=== PATIENT | male | born 1950 | race Caucasian/White ===

== ENCOUNTER 2021-10-20 15:06 | Emergency (ER) | payer MEDICARE, SELFPAY ==
--- NOTE | ~2021-10-20 | XR_ITS ---
EXAMINATION: XR chest 2V DATE: 10/20/2021 15:45 INDICATION: Chest pain. TECHNIQUE: Frontal and lateral views of the chest were obtained. COMPARISON: None. FINDINGS: The chest demonstrates clear lungs without pneumonia, pleural effusion, or pneumothorax. Th e heart size is normal. IMPRESSION: 1. No acute cardiopulmonary disease. Reviewed, dictated and finalized at location A. EMS PROGRAMMER ANALYST
--- NOTE | 2021-10-20 15:10 | ECG_ITS ---
Measurements Intervals [place] Rate: 93 P: 8 NM: 166 QRS: -42 QRSD: 96 T: 10 QT: 343 QTc: 429 Interpretive Statements SINUS RHYTHM LEFT AXIS DEVIATION INCOMPLETE RIGHT BUNDLE BRANCH BLOCK DELAYED PRECORDIAL R/S TRANSITION BASELINE WANDER- II, III, AVF BORDERLINE ECG Electronically Signed On 10-21-2021 14:07:39 SHOWER MAID by Vega Ron D.O.
[2021-10-20 15:18] VITALS: BP 149/100; PULSE 96; RESP 18; TEMP 36.8; O2SAT 98
[2021-10-20 15:42] LABS: Basophils Absolute Auto 0.1 K/mm3 (0.0-0.1); Basophils Percent Auto 1.1 % (0.2-1.2); Eosinophils Absolute Auto 0.2 K/mm3 (0-0.3); Eosinophils Percent Auto 3.4 % (0-4.4); Hematocrit 47.6 % (42.0-52.0); Hemoglobin 16.4 g/dL (14.0-18.0); Immature Granulocyte Absolute 0.02 K/mm3 (0.00-0.031); Immature Granulocyte Percent A 0.3 % (0-0.5); Lymphocytes Absolute Auto 1.22 K/mm3 (0.9-3.2); Mean Corpuscular HGB Conc 34.5 g/dl (32-36); Mean Corpuscular Hemoglobin 32.8 pg (26-34); Mean Corpuscular Volume 95.2 fl (80-100); Mean Platelet Volume 9.7 fl (7.4-10.4); Monocytes Absolute Auto 0.5 K/mm3 (0.1-0.6); Monocytes Percent Auto 7.9 % (2.6-8.5); Neutrophils Absolute Auto 4.1 K/mm3 (1.3-6.7); Neutrophils Percent Auto 67.3 % (45.5-73.1); Platelet Count Result 162 k/mm3 (150-375); Red Cell Distribution Width 12.1 % (11.5-14.5); White Blood Count 6.1 K/mm3 (4.5-10.0)
[2021-10-20 15:52] LABS: INR 1.2; Prothrombin Time 14.9 Seconds (11.1-14.7)
[2021-10-20 15:53] LABS: Alanine Aminotransferase 27 U/L (4-50); Albumin Level 4.4 g/dL (3.5-5.1); Alkaline Phosphatase 68 U/L (38-126); Anion Gap 11 mmol/L (8-16); Aspartate Amino Transferase 36 U/L (17-59); Bilirubin,Total 0.9 mg/dL (0.2-1.3); Blood Urea Nitrogen 18 mg/dL (9-20); Calcium 9.2 mg/dL (8.4-10.2); Carbon Dioxide 25 mmol/L (22-30); Chloride 102 mmol/L (98-107); Estimated CRCL calculation 77 ml/min; Estimated Glomerular Filt Rate > 60; Glucose 152 mg/dL (65-110); Lipase 71 U/L (23-300); Potassium 4.2 mmol/L (3.4-5.0); Sodium 138 mmol/L (137-145)
[2021-10-20 16:04] LABS: Troponin I < 0.012 ng/mL (0.000-0.034)
[2021-10-20 18:03] VITALS: BP 164/102; PULSE 99; RESP 18; O2SAT 99
== END 2021-10-20 18:03 | disposition left against medical advice (07) ==
LOC: ANHED 18:06
PROVIDERS: Emergency Provider Emergency Medicine
DX: R07.9 Chest pain, unspecified (principal)
CPT/HCPCS: 36415; 71046; 80053; 83690; 84484; 85025; 85610; 85730; 93005; 99199

== ENCOUNTER 2021-10-30 09:24 | Outpatient (CLI) | payer MEDICARE, SELFPAY ==
[2021-10-30 10:31] LABS: Anion Gap 4 mmol/L (8-16); Blood Urea Nitrogen 25 mg/dL (9-20); Calcium 9.2 mg/dL (8.4-10.2); Carbon Dioxide 30 mmol/L (22-30); Chloride 106 mmol/L (98-107); Estimated Glomerular Filt Rate 60; Glucose 127 mg/dL (65-110); Magnesium 2.1 mg/dL (1.6-2.3); Potassium 4.2 mmol/L (3.4-5.0); Sodium 140 mmol/L (137-145)
== END 2021-10-30 09:25 | disposition home or self-care (01) ==
PROVIDERS: PCP Internal Medicine; Visit Provider Internal Medicine
DX: R00.2 Palpitations (principal)
CPT/HCPCS: 36415; 80048; 83735; 84443

== ENCOUNTER 2021-11-09 08:39 | Outpatient (CLI) | payer MEDICARE, OTHER, SELFPAY ==
--- NOTE | 2021-11-09 | ECHO_ITS ---
Patient Info Name: Bryson Garcia Age: 70 years : 1950 Gender: Male Ht: 72 in Wt: 230 lbs BSA: 2.33 m2 HR: 90 bpm BP: 124 / 85 mmHg Heart Rhythm: Sinus Rhythm Technical Quality: Fair Exam Date: 11/09/2021 9:36 AM Exam Location: [facility] Patient Status: Outpatient Admit Date: 11/09/2021 Staff Ordering Physician: AnabelleLatia MD Radio Interference Investigator: Michelle Desouza RDCS Attending Provider: AnabelleLatia MD Referring Physician: Ronnie BARRAZA; Exam Type: CA echo doppler color flow Study Info Indications I49.9 - IRREGULAR HEARTBEAT Complete two-dimensional, color flow and Doppler transthoracic echocardiogram is performed. Strain analysis performed. Summary 1. Complete two-dimensional, color flow and Doppler transthoracic echocardiogram is performed. 2. Left ventricular chamber dimension is normal. 3. Left ventricular systolic function is normal, estimated at 60-65%. 4. There is no increased left ventricular wall thickness. 5. The left ventricular diastolic function is grade I diastolic dysfunction. 6. Global longitudinal strain is abnormal at -14 %. 7. Strain analysis performed. 8. Left atrial chamber dimension is mildly enlarged. 9. There is mild tricuspid valve regurgitation. Left Ventricle Left ventricular chamber dimension is normal. Left ventricular systolic function is normal, estimated at 60-65%. There is no increased left ventricular wall thickness. The left ventricular diastolic function is grade I diastolic dysfunction. Global longitudinal strain is abnormal at -14 %. The Inferolateral wall segment is not well visualized. Right Ventricle Right ventricular chamber dimension is normal. Right ventricular systolic function is normal. Left Atria Left atrial chamber dimension is mildly enlarged. Right Atria Right atrial chamber dimension is normal. Atrial Septum Intact interatrial septum visualized by color flow imaging. Aortic Valve The aortic valve is trileaflet. There is mild aortic valve sclerosis. There is no aortic valve stenosis. There is trace aortic valve regurgitation. Pulmonic Valve The pulmonic valve is normal. There is no pulmonic valve stenosis. There is trace pulmonic regurgitation. Mitral Valve The mitral valve has normal leaflets. There is no mitral valve stenosis. There is trace mitral valve regurgitation. Tricuspid Valve The tricuspid valve leaflets are normal. There is no significant tricuspid valve stenosis. There is mild tricuspid valve regurgitation. No pulmonary hypertension, estimated pulmonary arterial systolic pressure is 32 mmHg. Pericardium/Pleural The pericardium appears normal. There is no pericardial effusion. Inferior Vena Cava Normal inferior vena cava with >50% collapse upon inspiration consistent with normal right atrial pressure, 5 mmHg. Aorta The aortic root size at the sinus of Valsalva is borderline dilated. Left Ventricular Outflow Tract Name Value Normal LVOT 2D LVOT Diameter 2.0 cm LVOT Doppler LVOT Peak Gradient 3 mmHg LVOT Mean Gradient
--- NOTE | 2021-11-09 | EST_ITS ---
Patient Info Name: Bryson Garcia Age: 70 years : 1950 Gender: Male Ht: 72 in Wt: 230 lbs BSA: 2.33 m2 HR: 77 bpm BP: 143 / 91 mmHg Heart Rhythm: Sinus Rhythm Exam Date: 11/09/2021 9:06 AM Exam Location: [facility] Stress Patient Status: Outpatient Admit Date: 11/09/2021 Staff Ordering Physician: RonnieLatia MD Attending Provider: RonnieLatia MD Exercise Technologist: Jacki Vega CT Exercise Physician: Moses Gross MD Exam Type: CA stress test treadmill Study Info Indications R00.2 - Palpitations An exercise stress test was performed. Summary 1. Normal ST segment response to stress. 2. Below average exercise capacity for age. Protocol: Audie Stress ECG Details Stage: REST Duration (min): 1 min : 5 sec Speed (mph): 0.0 Grade (%): 0 HR (bpm): 78 SBP (mmHg): 141 DBP (mmHg): 93 METS: --- Stage: REST Duration (min): 7 min : 15 sec Speed (mph): 0.0 Grade (%): 0 HR (bpm): 81 SBP (mmHg): 141 DBP (mmHg): 93 METS: --- Stage: STAGE 1 Duration (min): 1 min : 0 sec Speed (mph): 1.7 Grade (%): 10 HR (bpm): 101 SBP (mmHg): 141 DBP (mmHg): 93 METS: --- Stage: STAGE 1 Duration (min): 2 min : 0 sec Speed (mph): 1.7 Grade (%): 10 HR (bpm): 115 SBP (mmHg): 141 DBP (mmHg): 93 METS: --- Stage: STAGE 1 Duration (min): 3 min : 0 sec Speed (mph): 1.7 Grade (%): 10 HR (bpm): 125 SBP (mmHg): 161 DBP (mmHg): 88 METS: --- Stage: STAGE 2 Duration (min): 1 min : 0 sec Speed (mph): 2.5 Grade (%): 12 HR (bpm): 132 SBP (mmHg): 161 DBP (mmHg): 88 METS: --- Stage: STAGE 2 Duration (min): 2 min : 0 sec Speed (mph): 2.5 Grade (%): 12 HR (bpm): 139 SBP (mmHg): 153 DBP (mmHg): 89 METS: --- Stage: STAGE 2 Duration (min): 3 min : 0 sec Speed (mph): 2.5 Grade (%): 12 HR (bpm): 142 SBP (mmHg): 153 DBP (mmHg): 89 METS: --- Stage: RECOVERY Duration (min): 0 min : 59 sec Speed (mph): 0.0 Grade (%): 0 HR (bpm): 130 SBP (mmHg): 185 DBP (mmHg): 95 METS: --- Stage: RECOVERY Duration (min): 1 min : 59 sec Speed (mph): 0.0 Grade (%): 0 HR (bpm): 113 SBP (mmHg): 185 DBP (mmHg): 95 METS: --- Stage: RECOVERY Duration (min): 2 min : 59 sec Speed (mph): 0.0 Grade (%): 0 HR (bpm): 103 SBP (mmHg): 147 DBP (mmHg): 91 METS: --- Stage: RECOVERY Duration (min): 3 min : 3 sec Speed (mph): 0.0 Grade (%): 0 HR (bpm): 102 SBP (mmHg): 147 DBP (mmHg): 91 METS: --- Rest HR: 81 bpm Peak HR: 146 bpm Rest Sys BP: 141 mmHg Peak Sys BP: 185 mmHg Max Pred HR: 151 bpm % Max Pred HR: 97 % Target HR: 128 bpm Max RPP: 27,010 bpm*mmHg Fung Score: -11 Target HR Summary: Hemodynamic response to exercise was normal
--- NOTE | 2021-11-11 15:38 | WPDHOLTEREM ---
Holter/Event Monitor Holter/Event Monitor Date of procedure: 11/09/21 Holter/Event Procedure: 48 Hr Holter Monitor Diagnosis: Palpitations Indications: Palpitations Image/Tracing Quality: Good Finding: Patient was monitored for 47 hours and 59 minutes. Underlying normal sinus rhythm with heart rate variability between 58 and 125 beats per minute with an average heart rate of 82 beats per minute. Low frequency ventricular ectopy totaling 97 PVCs. No sustained or nonsustained runs of ventricular arrhythmia. Also low frequency supraventricular ectopy totaling 71 beats. This consisted of one 10 beat atrial run at a rate of 136 beats per minute. There is also 3 atrial pairs and 55 isolated PACs. AV and IV conduction systems were within normal limits No atrial fibrillation. The longest RR interval was 1.4 seconds. No significant pause or heart block. No symptom events recorded. Conclusion: 1. Underlying normal sinus rhythm with average heart rate of 82 beats per minute. 2. Low frequency of ventricular ectopy 3. Low frequency supraventricular ectopy including one 10 atrial run at a rate of 136 beats per minute. 4. No symptoms
== END 2021-11-09 08:40 | disposition home or self-care (01) ==
LOC: ANHCARD 08:41
PROVIDERS: PCP Internal Medicine; Visit Provider Internal Medicine
DX: R07.9 Chest pain, unspecified (principal); I49.9 Cardiac arrhythmia, unspecified; R00.2 Palpitations
CPT/HCPCS: 93017; 93225; 93226; 93306

== ENCOUNTER 2023-05-17 21:36 | Inpatient (IN) | payer MEDICARE, MEDICAID, SELFPAY ==
--- NOTE | ~2023-05-17 | XR_ITS ---
EXAMINATION: XR chest 1V portable Exam Date/Time: 05/17/2023 21:40 CDT HISTORY: STEMI Comparison: 10/20/2021. RESULT: Lines, tubes, and devices: None. Lungs and pleura: Minimal streaky bibasilar atelectasis/scar, otherwise clear. Cardiomediastinal silhouette: Stable. Other: No acute osseous or upper abdominal finding. IMPRESSION: No acute cardiopulmonary process. Reviewed, dictated and finalized at location K.
[2023-05-17 21:29] VITALS: BP 173/115; PULSE 66; RESP 12; TEMP 36.7; O2SAT 100
--- NOTE | 2023-05-17 21:41 | ECG_ITS ---
Measurements Intervals [place] Rate: 60 P: 41 [place]: 173 QRS: -15 QRSD: 104 T: 2 QT: 392 QTc: 393 Interpretive Statements SINUS RHYTHM COMPARED TO ECG 10/20/2021 15:29:11 NO SIGNIFICANT CHANGES Electronically Signed On 05-18-2023 15:19:13 CDT by Niko Herron M.D.
--- NOTE | 2023-05-17 21:42 | ED.GENADULT ---
HPI - General Adult General Chief complaint: Chest Pain Stated complaint: STEMI History of Present Illness HPI narrative: This 72-year-old male with history of hyperlipidemia presenting ED with chief complaint of chest pain. Patient has been having intermittent chest pain throughout the day, however at 8:30 p.m. he started to have a constant burning sensation in the sternum that radiates to his left jaw. Associated with diaphoresis. He then went to his local fire house where an EKG was obtained that showed an inferior STEMI. He was given nitro and aspirin and brought to the hospital. At this time the patient is chest pain-free. He denies any other complaints. Related Data Allergies Allergy/AdvReac Type Severity Reaction Status Date / Time acetaminophen [From Vicodin] Allergy Itching Verified 05/17/23 22:00 codeine Allergy Itching Verified 05/17/23 22:00 hydrocodone [From Vicodin] Allergy Itching Verified 05/17/23 22:00 PMFSH Past Medical History Medical History Arrhythmia Hyperlipidemia Exam Narrative: APPEARANCE: No apparent distress. Head: atraumatic. EYES: EOMI, NOSE: Atraumatic NECK: Trachea midline RESPIRATORY: No increased rate of breathing , clear to auscultation CARDIOVASCULAR: RRR, no peripheral edema ABDOMINAL: Non-distended, soft no guarding rebound MUSCULOSKELETAl: No obvious deformities NEURO: Alert. Moving 4/4 extremities SKIN:: Warm, dry. Normal color PSYCHIATRIC: Normal affect Course Vital Signs Vital signs: Vital Signs Temperature 98.0 F 05/17/23 21:29 Pulse Rate 66 05/17/23 21:29 Respiratory Rate 12 05/17/23 21:29 Blood Pressure 173/115 H 05/17/23 21:29 Pulse Oximetry 100 05/17/23 21:29 Oxygen Delivery Room Air 05/17/23 21:29 Temperature 98.0 F 05/17/23 21:29 Pulse Rate 66 05/17/23 21:29 Respiratory Rate 12 05/17/23 21:29 Blood Pressure 173/115 H 05/17/23 21:29 Pulse Oximetry 100 05/17/23 21:29 Oxygen Delivery Room Air 05/17/23 21:29 Medical Decision Making MDM Narrative Medical decision making narrative: -Presentation: 72-year-old male presenting with chest pain. Inferior STEMI on field EKG. STEMI activated. patient chest pain free on arrival to the ED. Repeat EKG showed no STEMI pattern. Case was discussed with Dr. Rosales who recommended maximal medical management. Patient will be admitted to the hospital. 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 Lives with . -External Chart Review: Review of stress test, Holter monitor and echo from Nov 2021 -Hx from independent Sources: EMS -Independent interpretation of studies: Independent EKG interpretation: Rhythm [sinus], Rate [60], [place] -[normal], HI -[normal], QRS [narrow], QTC [normal], T waves -[negative for concerning inversions], ST Segments - [Negative for concerning elevations] Final interpretations: [Normal Sinus Rhythm] CBC and BMP normal. Initial troponin 0.242. Will continue to trend. Chest x-ray negative. -Discussion of Management/Consultants: Dr. Rosales - Hospitalist, Dr. Aguirre - Hospitalist -Interventions: 325 mg aspirin, nitro paste, heparin drip, Brilinta, atorvastatin -Shared decision making / Disposition: patient will be admitted to the hospital for further management of his ACS. Vital Signs Vital Signs: Vital Signs Temperature 98.0 F 05/17/23 21:29 Pulse Rate 66 05/17/23 21:29 Respiratory Rate 12 05/17/23 21:29 Blood Pressure 173/115 H 05/17/23 21:29 Pulse Oximetry 100 05/17/23 21:29 Oxygen Delivery Room Air 05/17/23 21:29 Temperature 98.0 F 05/17/23 21:29 Pulse Rate 66 05/17/23 21:29 Respiratory Rate 12
[2023-05-17 21:55] LABS: Basophils Absolute Auto 0.1 K/mm3 (0.0-0.1); Basophils Percent Auto 1.5 % (0.2-1.2); Eosinophils Absolute Auto 0.4 K/mm3 (0-0.3); Eosinophils Percent Auto 5.3 % (0-4.4); Hematocrit 45.4 % (42.0-52.0); Hemoglobin 15.5 g/dL (14.0-18.0); Immature Granulocyte Absolute 0.04 K/mm3 (0.00-0.031); Immature Granulocyte Percent A 0.5 % (0-0.5); Lymphocytes Absolute Auto 1.72 K/mm3 (0.9-3.2); Lymphocytes Percent Auto 23.4 % (18.3-44.2); Mean Corpuscular HGB Conc 34.1 g/dl (32-36); Mean Corpuscular Hemoglobin 32.8 pg (26-34); Mean Platelet Volume 9.6 fl (7.4-10.4); Monocytes Absolute Auto 0.7 K/mm3 (0.1-0.6); Monocytes Percent Auto 9.8 % (2.6-8.5); Neutrophils Absolute Auto 4.4 K/mm3 (1.3-6.7); Neutrophils Percent Auto 59.5 % (45.5-73.1); Platelet Count Result 171 k/mm3 (150-375); Red Blood Count 4.73 M/mm3 (4.6-6.20); Red Cell Distribution Width 12.2 % (11.5-14.5); White Blood Count 7.3 K/mm3 (4.5-10.0)
[2023-05-17 22:01] VITALS: PULSE 64
[2023-05-17 22:01] LABS: Alanine Aminotransferase 22 U/L (6-50); Alkaline Phosphatase 57 U/L (38-126); Anion Gap 1 mmol/L (8-16); Aspartate Amino Transferase 38 U/L (17-59); Bilirubin,Total 0.8 mg/dL (0.2-1.3); Blood Urea Nitrogen 17 mg/dL (9-20); Calcium 8.9 mg/dL (8.4-10.2); Carbon Dioxide 30 mmol/L (22-30); Chloride 104 mmol/L (98-107); Estimated CRCL calculation 76 ml/min; Estimated Glomerular Filt Rate > 60; Glucose 125 mg/dL (65-110); Lipase 32 U/L (23-300); Potassium 4.1 mmol/L (3.4-5.0); Sodium 135 mmol/L (137-145)
[2023-05-17] MEDS: ATORVASTATIN 40 MG TABLET PO (22:01)
[2023-05-17] MEDS: NITROGLYCERIN OINTMENT 1 INCH DOSE TRANSDERM (22:01)
[2023-05-17] MEDS: TICAGRELOR 90 MG TABLET 180 MG PO (22:01)
[2023-05-17] MEDS: METOPROLOL TARTRATE 25 MG TABLET PO (22:01)
[2023-05-17 22:03] LABS: Cholesterol 210 mg/dL (0-200); HDL Direct 44 mg/dL; Triglycerides 157 mg/dL (<150)
[2023-05-17 22:05] LABS: INR 1.2; Prothrombin Time 16.1 Seconds (11.1-14.7)
[2023-05-17 22:06] LABS: Partial Thromboplastin Time 30.8 SECONDS (22.3-36.8)
[2023-05-17 22:13] LABS: LDL Cholesterol Direct 134 mg/dL
[2023-05-17 22:15] LABS: Troponin I 0.242 ng/mL (0.000-0.034)
--- NOTE | 2023-05-17 22:53 | PM.IMHP ---
H&P: HPI History of Present Illness Date/Time: 05/17/23 22:53 Chief Complaint: chest pain, STEMI Narrative: This is a 72 y/o M with a PMH of HTN, prior hx of LE DVT in >20 yrs ago, who has presented with acute worsening of intermittent chest pain throughout the day. This chest pain got worse at 830 pm, and he presented to the nearby Fire department. He took his 's NTG prior to presentation to the Fire station. EKG at the fire station showed STEMI in 2, 3, avF. Unclear if R sided chest leads were obtained. A 2nd EKG from [facility] shows persisting STEMI in 2, 3 and AVF. V4R, V8, V9 appears to be normal. He described his symptoms as dull burning pain that eventually radiated to the L jaw. His also noticed that he started sweating profusely in the evening. The pt was transferred here to [facility]. The pt also received 4 aspirin 81's, en route. His symptoms greatly abated, and he has had minimal symptoms since he has been here in the ER, although they are still occasionally occurring. A repeat EKG here was normal, and showed no ST changes in any leads. Dr. Leal, the restaurant operations manager hearing consultant, was consulted. At this time, he told the ER physician he did not want to cath the pt. Presuming, inferior MO, he has recommended nitropaste scheduled, metoprolol 25 mg bid, heparin drip, aspirin/statin, ticagrelor 180 mg now (presumably 90 mg bid after that), and trending troponins. A prior EKG has shown PVC's and PAC's. The troponin right now 0.242 (elevated) His home meds are propranolol 60 mg/day, naproxen 250 mg q2-3 days. Discussed pt with ER physician. 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 No longer drinks or smokes. Last smoked 25 yrs ago, last drink in the . , present. 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 Meds Home Medications and Allergies Allergies Allergy/AdvReac Type Severity Reaction Status Date / Time acetaminophen [From Vicodin] Allergy Itching Verified 05/17/23 22:00 codeine Allergy Itching Verified 05/17/23 22:00 hydrocodone [From Vicodin] Allergy Itching Verified 05/17/23 22:00 Vital Signs Vital Signs - 24 hr 05/17/23 21:29 05/17/23 22:01 Temperature 98.0 F Pulse Rate 66 64 Respiratory Rate 12 Blood Pressure 173/115 H Pulse Oximetry 100 Oxygen Delivery Room Air Exam Narrative: Gen: alert male, NAD HENT: unremarkable Neck: supple, no jvd Eyes: EOMI Lungs: CTAB, good inspiratory effort CV: RRR, nl s1/s2 no murmurs Legs: No LE edema present Abd: soft nt/nd, bs+ Neuro: no focal deficits Psych: nl, no deficits H&P: Results Labs Labs: Short CBC 05/17/23 Range/Units 21:45 WBC 7.3 (4.5-10.0) K/mm3 Hgb 15.5 (14.0-18.0) g/dL Hct 45.4 (42.0-52.0) % Plt Count 171 (150-375) k/mm3 BMP 05/17/23 21:45 Sodium 135 L Potassium 4.1 Chloride 104 Carbon Dioxide 30 BUN 17 Creatinine 1.00 Glucose 125 H Calcium 8.9 Cardiac Enzymes 05/17/23 Range/Units 21:45 Troponin I 0.242 H* (0.000-0.034) ng/mL Liver Function 05/17/23 Range/Units 21:45 Total Bilirubin 0.8 (0.2-1.3) mg/dL AST 38 (17-59) U/L ALT 22 (6-50) U/L Alkaline Phosphatase 57 (38-126) U/L Albumin 4.0 (3.5-5.1) g/dL ECG Interpretation: EKG from Fire station shows STEMI in 2, 3, avF. t waves are flat in v5, v6. low qrs voltages in precordial leads EKG from [place] [facility] repeat? , shows 2, 3, avF STEMI , and possible R sided precordial leads do not show STEMI EKG from [facility] is normal Assessment and Plan Assessment and plan (1) Non-ST elevation MO (NSTEMI): Code(s): I21.4 - Non-ST eleva
[2023-05-17 23:08] VITALS: BP 129/91; PULSE 62; RESP 16; O2SAT 97
--- NOTE | 2023-05-17 23:17 | PC.NURSE ---
Report given to Jody Danielle
[2023-05-17 23:44] VITALS: BP 142/93; PULSE 60; RESP 20; TEMP 36.5; O2SAT 100; BMI 32.3
--- NOTE | 2023-05-17 23:50 | ADMGEN ---
This patient, Bryson Garcia, was admitted to IMU Room 200-01. Patient/family oriented to hospital policies and general routines including ID bracelet, bed and alarms, visiting hours, pain management, procedures, bathroom and other care routines, personal items, smoking policy, room service/diet, and visiting hours. Information on how to activate the Rapid Response Team has been discussed. Patient/Family are encouraged to report perceived risks to care and to ask questions if they do not understand what they are told or what they should do.
[2023-05-18] VITALS (26 sets, daily range): BP systolic 122–150; BP diastolic 76–97; PULSE 53–99; RESP 14–20; TEMP 35.7–36.6; O2SAT 96–100
--- NOTE | 2023-05-18 | ECHO_ITS ---
Patient Info Name: Bryson Garcia Age: 72 years : 1950 Gender: Male Ht: 72 in Wt: 238 lbs BSA: 2.37 m2 HR: 78 bpm BP: 130 / 88 mmHg Heart Rhythm: Sinus Rhythm Technical Quality: Fair Exam Date: 05/18/2023 10:43 AM Exam Location: [facility] Exam Room: 200 Patient Status: Inpatient Admit Date: 05/17/2023 Staff Ordering Physician: Niko Herron MD (richar/edgar) Secretarial Teacher: Neema Duenas RDCS Attending Provider: Reynaldo Celis MD Referring Physician: Gopal WINSLOW; Exam Type: CA echo dop color flow w con Study Info Indications - NSTEMI S/P CATH STENT Complete two-dimensional, color flow and Doppler transthoracic echocardiogram is performed with contrast to opacify the left ventricle and to improve the deliniation of the left ventricle endocardial borders. Contrast/Agitated Saline Contrast/Ag. Saline: Definity Amount: 2.00 ml Administered By: Neema Duenas [facility] Existing IV Access: Yes IV Access Condition: patent with no signs of infiltration New IV Access: Left Summary 1. Technically difficult study with limited views. Definity contrast enhancement administered. 2. Left ventricular chamber dimension is normal. 3. Left ventricular systolic function is normal, estimated at 65-70% with mild hypokinesis of the basal inferior wall.. 4. There is no increased left ventricular wall thickness. 5. The left ventricular diastolic function is grade I diastolic dysfunction. 6. The aortic valve is not well visualized. 7. There is no aortic valve stenosis. 8. There is trace tricuspid valve regurgitation. 9. No pulmonary hypertension, estimated pulmonary arterial systolic pressure is 30 mmHg. Left Ventricle Left ventricular chamber dimension is normal. Left ventricular systolic function is normal, estimated at 65-70% with mild hypokinesis of the basal inferior wall.. There is no increased left ventricular wall thickness. The left ventricular diastolic function is grade I diastolic dysfunction. Technically difficult study with limited views. Definity contrast enhancement administered. Right Ventricle Right ventricular chamber dimension is normal. Right ventricular systolic function is normal. Left Atria Left atrial chamber dimension is mildly enlarged. Right Atria Right atrial chamber dimension is mildly enlarged. Aortic Valve The aortic valve is not well visualized. There is no aortic valve stenosis. There is no aortic valve regurgitation. Pulmonic Valve The pulmonic valve is not well visualized. There is trace pulmonic regurgitation. Mitral Valve The mitral valve has normal leaflets. There is trace mitral valve regurgitation. Tricuspid Valve The tricuspid valve leaflets are normal. There is trace tricuspid valve regurgitation. No pulmonary hypertension, estimated pulmonary arterial systolic pressure is 30 mmHg. Pericardium/Pleural The pericardium appears normal. There is trivial pericardial effusion. Inferior Vena Cava Normal inferior vena cava with >50% collapse upon inspiration consistent with normal right atrial pressure, 5 mmHg. Aorta The aortic root size at the sinus of Valsalva is normal. There is mild-moderate aortic atherosclerosis. Left Ventricular Outflow Tract Name Value Normal LVOT 2D LVOT Diame
[2023-05-18] MEDS: HEPARIN SODIUM 5,000 UNITS/ML VIAL 4000 UNITS IV PUSH (00:21)
[2023-05-18 00:22] LABS: INR 1.2; Prothrombin Time 16.2 Seconds (11.1-14.7)
[2023-05-18] MEDS: HEPARIN SOD/D5W 100 UNITS/ML 25,000 UNITS/250 ML BAG 10 UNITS IV CONT (00:22)
[2023-05-18 00:30] LABS: Basophils Absolute Auto 0.1 K/mm3 (0.0-0.1); Basophils Percent Auto 0.9 % (0.2-1.2); Eosinophils Absolute Auto 0.2 K/mm3 (0-0.3); Eosinophils Percent Auto 2.6 % (0-4.4); Hematocrit 47.1 % (42.0-52.0); Hemoglobin 16.2 g/dL (14.0-18.0); Immature Granulocyte Absolute 0.03 K/mm3 (0.00-0.031); Immature Granulocyte Percent A 0.3 % (0-0.5); Lymphocytes Absolute Auto 1.36 K/mm3 (0.9-3.2); Lymphocytes Percent Auto 15.6 % (18.3-44.2); Mean Corpuscular HGB Conc 34.4 g/dl (32-36); Mean Corpuscular Hemoglobin 32.9 pg (26-34); Mean Corpuscular Volume 95.7 fl (80-100); Monocytes Absolute Auto 0.6 K/mm3 (0.1-0.6); Monocytes Percent Auto 6.4 % (2.6-8.5); Neutrophils Absolute Auto 6.5 K/mm3 (1.3-6.7); Neutrophils Percent Auto 74.2 % (45.5-73.1); Platelet Count Result 173 k/mm3 (150-375); Red Blood Count 4.92 M/mm3 (4.6-6.20); Red Cell Distribution Width 12.3 % (11.5-14.5); White Blood Count 8.7 K/mm3 (4.5-10.0)
--- NOTE | 2023-05-18 00:30 | ECG_ITS ---
Measurements Intervals [place] Rate: 91 P: [place]: 0 QRS: -61 QRSD: 143 T: 92 QT: 384 QTc: 473 Interpretive Statements SINUS RHYTHM WITH NONSUSTAINED VENTRICULAR TACHYCARDIA COMPARED TO ECG 05/17/2023 21:38:25 NONSUSTAINED VENTRICULAR TACHYCARDIA PRESENT Electronically Signed On 05-18-2023 15:21:55 CDT by Niko Herron M.D.
[2023-05-18] MEDS: AMIODARONE 150 MG/D5W 100 ML 150 MG/100 ML BAG 600 MG IV CONT (00:55)
[2023-05-18] MEDS: MAGNESIUM SULF 2 GM/WATER 50ML 2 GM/50 ML BAG IVPB (00:55)
--- NOTE | 2023-05-18 00:58 | PM.IMPN ---
Subjective Date/time seen: 05/18/23 00:58 Interval history: Pt had PVC's starting at 12:25. Stat EKG shows 5 beats of vtach with 1 or 2 regular beats. He was symptomatic. He described pounding in his chest. His BP was 134/77 mmHg. He was already on metoprolol. Nitropaste was stopped. RV infarction/ischemia has not been ruled out. Prn metoprolol has been added. Prn hydralazine is also available. Case was discussed with Dr. Leal. Recommended starting amiodarone and keeping pt in IMU. I gave 2g MgSulfate and 1g CaGluconate to protect against sustained vtach. No abnormalities noted on electrolyte panel. 0.392 Troponin was the repeat troponin. Objective Data Vital Signs Vital Signs: Vital Signs - 24 hr 05/17/23 21:29 05/17/23 22:01 05/17/23 23:08 Temperature 98.0 F Pulse Rate 66 64 62 Respiratory Rate 12 16 Blood Pressure 173/115 H 129/91 H Pulse Oximetry 100 97 Oxygen Delivery Room Air 05/17/23 23:44 05/17/23 23:44 05/18/23 00:48 Temperature 97.7 F 97.6 F Pulse Rate 60 60 99 Respiratory Rate 20 18 Blood Pressure 142/93 H 134/77 Pulse Oximetry 100 100 Oxygen Delivery Meds/Results Medications: Active Medications Generic Name Dose Route Start Last Admin Trade Name Freq PRN Reason Stop Dose Admin Aspirin 81 mg 05/18/23 09:00 Aspirin 81 Mg Enteric [facility] Atorvastatin Calcium 80 mg 05/17/23 23:25 05/18/23 00:23 Atorvastatin 40 Mg Tablet PO Not Given HS [facility] Heparin Sodium (Porcine) 3,500 units 05/17/23 23:19 Heparin Sodium 5,000 Units/Ml Vial IV PUSH PRN PRN aPTT 55 - 70 seconds Heparin Sodium (Porcine) 4,000 units 05/17/23 23:19 Heparin Sodium 5,000 Units/Ml Vial IV PUSH PRN PRN aPTT less than 55 seconds Hydralazine HCl 10 mg 05/17/23 23:25 Hydralazine Hcl 20 Mg/Ml Vial IV PUSH Q6H PRN Blood Pressure - High Heparin Sodium/Dextrose 25,000 units in 250 mls @ 10 mls/hr 05/17/23 23:20 05/18/23 00:22 Heparin Sodium/D5w 100 Units/Ml IV CONT 1,000 units/hr .Q24H SAIMA 10 mls/hr Administration Protocol 1,000 UNITS/HR Calcium Gluconate 1,000 mg in 50 mls @ 100 mls/hr 05/18/23 00:49 Calcium Gluc 1,000 Mg/Ns 50 Ml IVPB 05/18/23 01:18 ONCE ONE Magnesium Sulfate 2 gm in 50 mls @ 50 mls/hr 05/18/23 00:51 Magnesium Sulf 2 Gm/Water 50ml IVPB 05/18/23 01:50 ONCE ONE Amiodarone HCl/Dextrose 360 mg in 200 mls @ 16.667 mls/hr 05/18/23 07:10 Nexterone 360 Mg/D5w 200 Ml IV CONT .Q12H SAIMA Protocol 0.5 MG/MIN Amiodarone HCl/Dextrose 150 mg in 100 mls @ 600 mls/hr 05/18/23 00:54 Nexterone 150 Mg/D5w 100 Ml IV CONT 05/18/23 01:03 .Q10M ONE Protocol 15 MG/MIN Amiodarone HCl/Dextrose 360 mg in 200 mls @ 33.333 mls/hr 05/18/23 01:10 Nexterone 360 Mg/D5w 200 Ml IV CONT 05/18/23 07:09 .Q6H ONE Protocol 1 MG/MIN Metoprolol Tartrate 25 mg 05/17/23 21:50 05/17/23 22:01 Metoprolol Tartrate 25 Mg Tablet PO 25 mg Q12HR [facility] Administration Metoprolol Tartrate 25 mg 05/17/23 23:20 05/18/23 00:24 Metoprolol Tartrate 25 Mg Tablet PO Not Given Q12HR [facility] Metoprolol Tartrate 5 mg 05/18/23 00:53 Metoprolol Tartrate Inj 5 Mg/5 Ml Vial IV PUSH Q2H PRN Ventricular Arrhythmia Ticagrelor 90 mg 05/18/23 09:00 Ticagrelor 90 Mg Tablet PO Q12HR [facility] Radiology Results: ITS Impressions Chest X-Ray 05/17/23 22:03 IMPRESSION: No acute cardiopulmonary process. Labs Labs: Laboratory Results - last 24 hr 05/17/23 05/17/23 21:45 23:47 WBC 7.3 8.7 RBC 4.73 4.92 Hgb 15.5 16.2 Hct 45.4 47.1 MCV 96.0 95.7 MCH 32.8 32.9 MCHC 34.1 34.4 RDW 12.2 12.3 Plt Count 171 173 MPV 9.6 10.0 Immature Gran % (Auto) 0.5 0.3 Neut % (Auto) 59.5 74.2 H Lymph % (Auto) 23.4 15.6 L [place] % (Auto) 9.8 H 6.4 Eos % (Auto) 5.3 H 2.6 Baso % (Auto) 1.5 H 0.9
[2023-05-18 01:10] LABS: Troponin I 0.392 ng/mL (0.000-0.034)
[2023-05-18] MEDS: AMIODARONE 360 MG/D5W 200 ML 360 MG/200 ML BAG 33.33 MG IV CONT (01:10)
[2023-05-18 01:27] LABS: Alanine Aminotransferase 23 U/L (6-50); Albumin Level 4.1 g/dL (3.5-5.1); Alkaline Phosphatase 73 U/L (38-126); Anion Gap 6 mmol/L (8-16); Aspartate Amino Transferase 31 U/L (17-59); Bilirubin,Total 0.9 mg/dL (0.2-1.3); Blood Urea Nitrogen 16 mg/dL (9-20); Calcium 9.2 mg/dL (8.4-10.2); Carbon Dioxide 27 mmol/L (22-30); Chloride 104 mmol/L (98-107); Estimated CRCL calculation 84 ml/min; Estimated Glomerular Filt Rate > 60; Glucose 134 mg/dL (65-110); Potassium 4.2 mmol/L (3.4-5.0); Sodium 137 mmol/L (137-145)
[2023-05-18] MEDS: CALCIUM GLUC 1,000 MG/NS 50 ML 1,000 MG/50 ML BAG 100 MG IVPB (01:50)
[2023-05-18 04:09] LABS: Basophils Absolute Auto 0.1 K/mm3 (0.0-0.1); Basophils Percent Auto 1.1 % (0.2-1.2); Eosinophils Absolute Auto 0.3 K/mm3 (0-0.3); Eosinophils Percent Auto 3.7 % (0-4.4); Hematocrit 45.6 % (42.0-52.0); Hemoglobin 15.9 g/dL (14.0-18.0); Immature Granulocyte Absolute 0.04 K/mm3 (0.00-0.031); Immature Granulocyte Percent A 0.5 % (0-0.5); Lymphocytes Absolute Auto 1.66 K/mm3 (0.9-3.2); Lymphocytes Percent Auto 22.2 % (18.3-44.2); Mean Corpuscular HGB Conc 34.9 g/dl (32-36); Mean Corpuscular Hemoglobin 32.7 pg (26-34); Mean Corpuscular Volume 93.8 fl (80-100); Mean Platelet Volume 9.7 fl (7.4-10.4); Monocytes Absolute Auto 0.6 K/mm3 (0.1-0.6); Neutrophils Absolute Auto 4.8 K/mm3 (1.3-6.7); Neutrophils Percent Auto 64.5 % (45.5-73.1); Platelet Count Result 164 k/mm3 (150-375); Red Blood Count 4.86 M/mm3 (4.6-6.20); Red Cell Distribution Width 11.9 % (11.5-14.5); White Blood Count 7.5 K/mm3 (4.5-10.0)
[2023-05-18] MEDS: AMIODARONE 360 MG/D5W 200 ML 360 MG/200 ML BAG 16.67 MG IV CONT (06:54)
[2023-05-18 06:56] LABS: Partial Thromboplastin Time 82.7 SECONDS (22.3-36.8)
--- NOTE | 2023-05-18 09:46 | PM.IMPN ---
Progress Note: A&P Assessment and Plan (1) Non-ST elevation [place] (NSTEMI): Code(s): I21.4 - Non-ST elevation (NSTEMI) myocardial infarction Status: Acute (2) Arrhythmia: Code(s): I49.9 - Cardiac arrhythmia, unspecified Status: Acute (3) Hyperlipidemia: Code(s): E78.5 - Hyperlipidemia, unspecified Status: Acute (4) Nonsustained ventricular tachycardia: Code(s): I47.29 - Other ventricular tachycardia Status: Acute Plan 1. NSTEMI STEMI on EKG resolved troponin elevated to 0.242 PT was discussed with Dr. Leal Started heparin drip, aspirin, statin, ticagrelor, scheduled nitropaste, metoprolol 25 mg bid, trend troponin Underwent cardiac test May 18, received a stent in right coronary artery Trend troponin and bp No arrhythmia present on EKG Nonsustained V-tach Pt had PVC's starting at 12:25. Stat EKG shows 5 beats of vtach with 1 or 2 regular beats. He was symptomatic. He described pounding in his chest. His BP was 134/77 mmHg. He was already on metoprolol. Case was discussed with Dr. Leal. Recommended starting amiodarone Also received 2g MgSulfate and 1g CaGluconate to protect against sustained vtach. No abnormalities noted on electrolyte panel. 2. Chronic pain MSK hold naproxen for CAD risk Full code Inpt/tele Subjective Date/time seen: 05/18/23 09:46 Interval history: Saw and examined the patient. Patient denies chest pain, shortness of breath,, abdomen pain, headache, focal weakness, mm incision Exam Narrative: GENERAL: Pleasant, in no acute distress. Well-nourished. - EYES: EOMI. Anicteric. - HENT: Moist mucous membranes. - LUNGS: Clear to auscultation bilaterally, no wheezing, rhonchi, or rales. - CARDIOVASCULAR: Regular rate and rhythm. No murmur. No JVD. - ABDOMEN: Soft, non-tender and non-distended. No palpable masses. - EXTREMITIES: No edema. Peripheral pulses 2+. Non-tender. - NEUROLOGIC: No focal neurological deficits. CN II-XII grossly intact. - PSYCHIATRIC: Awake, Alert and oriented x 3. Appropriate mood and affect. - SKIN: No rashes or lesions. Warm. - LYMPH: No cervical lymphadenopathy. Objective Data Vital Signs Vital Signs: Vital Signs - 24 hr 05/17/23 21:29 05/17/23 22:01 05/17/23 23:08 Temperature 98.0 F Pulse Rate 66 64 62 Respiratory Rate 12 16 Blood Pressure 173/115 H 129/91 H Pulse Oximetry 100 97 Oxygen Delivery Room Air 05/17/23 23:44 05/17/23 23:44 05/18/23 00:48 Temperature 97.7 F 97.6 F Pulse Rate 60 60 99 Respiratory Rate 20 18 Blood Pressure 142/93 H 134/77 Pulse Oximetry 100 100 Oxygen Delivery 05/18/23 00:55 05/18/23 01:10 05/18/23 00:00 Temperature Pulse Rate 76 71 72 Respiratory Rate Blood Pressure Pulse Oximetry Oxygen Delivery 05/18/23 00:00 05/18/23 02:00 05/18/23 04:00 Temperature Pulse Rate 63 66 Respiratory Rate Blood Pressure Pulse Oximetry Oxygen Delivery Room Air 05/18/23 04:00 05/18/23 04:00 05/18/23 06:00 Temperature 97.9 F Pulse Rate 63 61 Respiratory Rate 18 Blood Pressure 137/86 Pulse Oximetry 97 Oxygen Delivery Room Air 05/18/23 06:54 05/18/23 08:10 Temperature 97.3 F L Pulse Rate 61 66 Respiratory Rate 20 Blood Pressure 130/88 Pulse Oximetry 97 Oxygen Delivery Intake/Output Intake/Output: Intake & Output 05/15/23 05/16/23 05/17/23 05/18/23 23:59 23:59 23:59 23:59 Intake Total 200 Output Total 1150 Balance -950 Meds/Results Medications: Active Medications Generic Name Dose Route Start Last Admin Trade Name Freq PRN Reason Stop Dose Admin Aspirin 81 mg 05/18/23 09:00 Aspirin 81 Mg Enteric Tablet PO QAM [facility] Atorvastatin Calcium 80 mg 05/17/23 23:25 05/18/23 00:23 Atorvastatin 40 Mg Tablet PO Not Given HS [facility] Heparin Sodium (Porcine) 3,500 units 05/17/23 23:19 Heparin Sodium 5,000 Units/Ml Vial IV PUSH PRN PRN
[2023-05-18] MEDS: TICAGRELOR 90 MG TABLET PO ×2 (09:55→20:53)
[2023-05-18] MEDS: ASPIRIN 81 MG ENTERIC TABLET PO (09:55)
[2023-05-18] MEDS: METOPROLOL TARTRATE 25 MG TABLET PO ×2 (09:57→20:53)
--- NOTE | 2023-05-18 10:57 | PM.CNCAR ---
Assessment and Plan Assessment and plan (1) Non-ST elevation [place] (NSTEMI): Code(s): I21.4 - Non-ST elevation (NSTEMI) myocardial infarction Status: Acute (2) Nonsustained ventricular tachycardia: Code(s): I47.29 - Other ventricular tachycardia Status: Acute (3) Hyperlipidemia: Code(s): E78.5 - Hyperlipidemia, unspecified Status: Acute Plan Recommend [facility]. Discussed cardiac catheterization with the patient, including procedure details, risks vs benefits, alternative management options. Patient agreeable to proceed with cath. Will plan for cardiac catheterization today. Loaded with ASA 325mg on admission. Continue with ASA 81mg once daily. Loaded with Brilinta 180mg on admission. Continue with Brilinta 90mg BID. Continue Heparin drip. Continue beta sonu. Continue high-intensity statin. LDL is 134. Continue with Amiodarone drip for now. Echocardiogram ordered and pending. Will also check a Hgb A1c. History of Present Illness History of Present Illness Consult date/time: 05/18/23 10:57 Requesting physician: Raul Bland MD Consult reason: chest pain and Other (NSTEMI) Reason For Visit: NSTEMI Narrative: We are consulted for chest pain. This is a 72-year-old male with hyperlipidemia who began having chest pain yesterday morning. Sneads substernal burning chest pain that would come and go, however, later last night it felt more severe with radiation to the jaw, therefore, he went to his local fire house where an EKG there was concerning for possible inferior STEMI. He was given NTG and ASA and brought to [facility]. Patient chest pain free on arrival to the ED. EKG on presentation to the ED did not show a STEMI. EKG showed sinus rhythm with a nonspecific T wave abnormality. Patient's case was discussed with our on-call Interventionalist, Dr. Leal, who did not recommend emergent/urgent cardiac catheterization, recommended medical management. He was loaded with ASA 325mg, Brilinta 180mg, started on Heparin drip. Overnight, patient had NSVT for which Amiodarone drip was started. Initial troponin of 0.242, with troponin now up to 1.100. Patient had an echocardiogram in 11/2021 that showed LVEF 60-65%, no significant valvular disease. Treadmill stress test in 11/2021 was negative for ischemia. Review of Systems Review of Systems: All systems reviewed & are unremarkable except as noted in HPI and below (HPI) PMFSH Past Medical History Medical History Arrhythmia Hyperlipidemia Social History Social History Smoking status: Former smoker Smoking end date: 10/03/95 Alcohol intake: former Substance use: never Lack of Transportation: No Lack of Food: Never True Current Housing: I Do Not Have Housing Concerned About Future Housing: No Difficulty Paying Gas/Electric Bills: No Difficulty Paying for Meds: No Currently Unemployed: No Education: High School Diploma/GED Difficulty w/ Childcare or Family Care: No Spiritual care concerns: No Meds Home Medications and Allergies Home Medications Medication Instructions Recorded Confirmed Type propranolol 60 mg capsule,24 60 mg PO DAILY 05/18/23 05/18/23 History hr,extended release Allergies Allergy/AdvReac Type Severity Reaction Status Date / Time acetaminophen [From Vicodin] Allergy Itching Verified 05/17/23 22:00 codeine Allergy Itching Verified 05/17/23 22:00 hydrocodone [From Vicodin] Allergy Itching Verified 05/17/23 22:00 Vital Signs Vital Signs - 24 hr 05/17/23 21:29 05/17/23 22:01 05/17/23 23:08 Temperature 36.7 C Pulse Rate 66 64 62 Respiratory Rate 12 16 Blood Pressure 173/115 H 129/91 H Pulse Oximetry 100 97 Oxygen Delivery Room Air 05/17/23 23:44 05/17/23 23:44 05/18/23 00:48 Temperature 36.5 C 36.4 C Pulse Rate 60 60 99 Respiratory Rate 20 18 Blood Pr
--- NOTE | 2023-05-18 11:08 | WPDMODSED ---
Moderate Sedation Note-Pt Data Patient Data Diagnosis: NSTEMI Present Complaint: NSTEMI Procedure to be performed/Plan: Coronary angiography, left heart cath, +/- PCI Allergies Allergy/AdvReac Type Severity Reaction Status Date / Time acetaminophen [From Vicodin] Allergy Itching Verified 05/17/23 22:00 codeine Allergy Itching Verified 05/17/23 22:00 hydrocodone [From Vicodin] Allergy Itching Verified 05/17/23 22:00 Home Medications Medication Instructions Recorded Confirmed Type propranolol 60 mg capsule,24 60 mg PO DAILY 05/18/23 05/18/23 History hr,extended release Current Medications: Active Medications Aspirin (Aspirin 81 Mg Enteric Tablet) 81 mg PO QAM [facility] Last Admin: 05/18/23 09:55 Dose: 81 mg Atorvastatin Calcium (Atorvastatin 40 Mg Tablet) 80 mg PO HS [facility] Last Admin: 05/18/23 00:23 Dose: Not Given Heparin Sodium (Porcine) (Heparin Sodium 5,000 Units/Ml Vial) 3,500 units IV PUSH PRN PRN PRN Reason: aPTT 55 - 70 seconds Heparin Sodium (Porcine) (Heparin Sodium 5,000 Units/Ml Vial) 4,000 units IV PUSH PRN PRN PRN Reason: aPTT less than 55 seconds Hydralazine HCl (Hydralazine Hcl 20 Mg/Ml Vial) 10 mg IV PUSH Q6H PRN PRN Reason: Blood Pressure - High Heparin Sodium/Dextrose (Heparin Sodium/D5w 100 Units/Ml) 25,000 units in 250 mls @ 10 mls/hr IV CONT .Q24H [facility]; Protocol Last Titration: 05/18/23 07:03 Dose: 1,000 units/hr, 10 mls/hr Amiodarone HCl/Dextrose (Nexterone 360 Mg/D5w 200 Ml) 360 mg in 200 mls @ 16.667 mls/hr IV CONT .Q12H [facility]; Protocol Last Admin: 05/18/23 06:54 Dose: 0.5 mg/min, 16.67 mls/hr Metoprolol Tartrate (Metoprolol Tartrate 25 Mg Tablet) 25 mg PO Q12HR [facility] Last Admin: 05/18/23 09:57 Dose: 25 mg Metoprolol Tartrate (Metoprolol Tartrate 25 Mg Tablet) 25 mg PO Q12HR [facility] Last Admin: 05/18/23 00:24 Dose: Not Given Metoprolol Tartrate (Metoprolol Tartrate Inj 5 Mg/5 Ml Vial) 5 mg IV PUSH Q2H PRN PRN Reason: Ventricular Arrhythmia Morphine Sulfate (Morphine Sulfate (*Crx) 2 Mg/Ml Inj) 2 mg IV PUSH Q2H PRN PRN Reason: Pain Rated 7-10 Perflutren Lipid Microsphere (Perflutren Lipid Microspheres 1.5 Ml Vial Diluted To 10 Ml Total Volume) 0 ml IV PUSH ONCE PRN; Protocol PRN Reason: adequate visualization Stop: 05/20/23 08:59 Ticagrelor (Ticagrelor 90 Mg Tablet) 90 mg PO Q12HR [facility] Last Admin: 05/18/23 09:55 Dose: 90 mg Sedation/Anesthesia: No previous sedation/anesthesia problems (including family history). [facility] Past Medical History Medical History Arrhythmia Hyperlipidemia Social History Social History Smoking status: Former smoker Smoking end date: 10/03/95 Alcohol intake: former Substance use: never Lack of Transportation: No Lack of Food: Never True Current Housing: I Do Not Have Housing Concerned About Future Housing: No Difficulty Paying Gas/Electric Bills: No Difficulty Paying for Meds: No Currently Unemployed: No Education: High School Diploma/GED Difficulty w/ Childcare or Family Care: No Spiritual care concerns: No Mod Sed Physical Exam Physical Exam Pre Procedural Exam: Normal: Appearance, Lungs, Heart Rate, Heart Rhythm, Neuro Exam, Abdomen, Extremities and Skin Hours since solid foods: 12 Hours since liquid intake: 8 Mallampati Classification: class III Internal Medicine - PN: Obj Da Vital Signs Vital Signs: Vital Signs - 24 hr 05/17/23 21:29 05/17/23 22:01 05/17/23 23:08 Temperature 36.7 C Pulse Rate 66 64 62 Respiratory Rate 12 16 Blood Pressure 173/115 H 129/91 H Pulse Oximetry 100 97 Oxygen Delivery Room Air 05/17/23 23:44 05/17/23 23:44 05/18/23 00:48 Temperature 36.5 C 36.4 C Pulse Rate 60 60 99 Respiratory Rate 20 18 Blood Pressure 142/93 H 134/77 Pulse Oximetry 100 100 Oxygen Delivery 05/18/23 00:55 05/18/23 01:10 05/18/23 00:00 Lui
--- NOTE | 2023-05-18 12:15 | ECG_ITS ---
Measurements Intervals [place] Rate: 53 P: 46 [place]: 190 QRS: -35 QRSD: 105 T: -3 QT: 456 QTc: 429 Interpretive Statements SINUS BRADYCARDIA MARKED LEFT AXIS DEVIATION [QRS AXIS < -30] COMPARED TO ECG 05/18/2023 00:35:16 SINUS BRADYCARDIA NOW PRESENT Electronically Signed On 05-18-2023 15:27:40 CDT by Niko Herron M.D.
--- NOTE | 2023-05-18 12:17 | WPDCARDPROC ---
Cardiac Cath Procedure Note Date of procedure:: 05/18/23 Performing physician:: CATHETERIZATION LABORATORY REPORT Procedure Date: 05/18/2023 Plug Machine Operator: Niko Herron M.D., [facility]? Referring Physician: Niko Herron M.D. ? Anesthesia: Versed and Fentanyl were ordered and given in my presence at 11:13, procedure ended at 12:09. Supervision of nurse monitored moderate sedation with Versed and Fentanyl was provided for 56 minutes. Total of Versed 2mg and Fentanyl 75mcg were administered by the University Intern RN Manoj Smith. Pre-op Diagnosis: NSTEMI Post-op Diagnosis: 1. Significant obstructive 99% mid RCA stenosis s/p successful IVUS-guided PCI with NOELLE x 1. 2. Left ventricular end-diastolic pressure of 20mmHg Procedure(s): 1. Moderate sedation 2. Ultrasound-guided access of the right common femoral artery 3. Coronary angiography 4. Left heart cath 5. IVUS-guided PCI of the mid RCA with NOELLE x 1. 6. Angioseal closure of the right common femoral artery Access Site: Right common femoral artery Brief History and Clinical Indications: Patient is a 72-year-old male who is referred for [facility] for NSTEMI. All risks, benefits and alternatives to left heart catheterization with or without percutaneous coronary intervention was discussed at length with the patient. Risk of complications including but not limited to bleeding, infection, arrhythmia, stroke, worsening kidney function, blood loss, groin hematoma, limb loss, emergency coronary artery bypass grafting, and even were discussed with the patient and all questions were answered. The patient understood and wished to proceed. Time out called, patient name, date of , medical record number, allergies, procedure performed, identify Plug Machine Operator, patient and staff member concurred with accurate data, procedure carried on. Findings: LEFT HEART CATHETERIZATION FINDINGS: 1. Left main: Large caliber vessel. The left main coronary artery is widely patent without any significant obstructive disease. 2. Left anterior descending: Large caliber vessel. The LAD has mild diffuse disease without any significant obstructive angiographic disease. The first diagonal branch is a large caliber vessel with luminal irregularities. 3. Left circumflex: Large caliber vessel. The left circumflex artery and the main marginal branches have mild luminal irregularities without any significant obstructive angiographic disease. 4. Right coronary artery: Large caliber vessel. The RCA is the dominant vessel. The mid portion of the RCA has a 99% stenosis. Remainder of the RCA has luminal irregularities. 5. Left ventricle: A. End-diastolic pressure 20mmHg. B. LV gram deferred. C. No significant gradient across aortic valve on catheter pullback. Description of Procedure and PCI: Informed consent signed and placed in the chart. Patient transferred to ammunition assembly laborer room. Prepped and draped in usual sterile fashion. 2% lidocaine in right groin area. Micropuncture needle used to access right common femoral artery under ultrasound guidance. J wire advanced, micropuncture cannula placed. Right iliofemoral angiogram performed, access confirmed and micropuncture cannula exchanged for 5-FR sheath. 5F FL 4 diagnostic catheter engaged Left Main Coronary Artery. 5F FR 4 diagnostic catheter engaged Right Coronary Artery. Multiple orthogonal angiogram obtained and reviewed Angiomax used for anticoagulation. The existing 5F arterial sheath was exchanged over wire and upsized to 6F sheath. 6F JR 4 guide catheter was used to intubate the RCA. 0.014 [place] coronary wire was passed in to the distal RCA. The lesion was pre-dilated with a 2.5mm x 15mm balloon inflated to high JUAN MANUEL. Multiple balloon inflations done. IVUS catheter advanced distal to the lesion, and reference measurements obtained. A 4.0 mm x 23mm Xience NOELLE was successfully deployed into mid RCA. Follow-up angiograms showed an excellent result Terrell
[2023-05-18 13:58] LABS: Hemoglobin A1C 5.6 % (<5.7)
[2023-05-18] MEDS: SODIUM CHLORIDE 0.9% IV 1,000 ML 125 ML IV CONT (14:35)
[2023-05-18] MEDS: ATORVASTATIN 40 MG TABLET 80 MG PO (20:53)
[2023-05-19] VITALS (11 sets, daily range): BP systolic 111–142; BP diastolic 64–99; PULSE 64–74; RESP 12–20; TEMP 36.5–36.6; O2SAT 95–98
[2023-05-19 10:00] LABS: Basophils Absolute Auto 0.1 K/mm3 (0.0-0.1); Basophils Percent Auto 0.9 % (0.2-1.2); Eosinophils Absolute Auto 0.2 K/mm3 (0-0.3); Eosinophils Percent Auto 3.7 % (0-4.4); Hematocrit 43.5 % (42.0-52.0); Immature Granulocyte Absolute 0.03 K/mm3 (0.00-0.031); Immature Granulocyte Percent A 0.6 % (0-0.5); Lymphocytes Percent Auto 16.8 % (18.3-44.2); Mean Corpuscular HGB Conc 34.5 g/dl (32-36); Mean Corpuscular Hemoglobin 33.1 pg (26-34); Mean Platelet Volume 10.1 fl (7.4-10.4); Monocytes Absolute Auto 0.3 K/mm3 (0.1-0.6); Monocytes Percent Auto 6.2 % (2.6-8.5); Neutrophils Absolute Auto 3.8 K/mm3 (1.3-6.7); Neutrophils Percent Auto 71.8 % (45.5-73.1); Platelet Count Result 146 k/mm3 (150-375); Red Blood Count 4.53 M/mm3 (4.6-6.20); Red Cell Distribution Width 12.4 % (11.5-14.5); White Blood Count 5.4 K/mm3 (4.5-10.0)
[2023-05-19 10:10] LABS: Sodium 133 mmol/L (137-145)
[2023-05-19 10:11] LABS: Anion Gap 4 mmol/L (8-16); Blood Urea Nitrogen 18 mg/dL (9-20); Calcium 8.5 mg/dL (8.4-10.2); Carbon Dioxide 25 mmol/L (22-30); Chloride 104 mmol/L (98-107); Estimated CRCL calculation 76 ml/min; Estimated Glomerular Filt Rate > 60; Glucose 229 mg/dL (65-110); Potassium 3.4 mmol/L (3.4-5.0)
[2023-05-19] MEDS: METOPROLOL TARTRATE 25 MG TABLET PO (10:17)
[2023-05-19] MEDS: ASPIRIN 81 MG ENTERIC TABLET PO (10:17)
[2023-05-19] MEDS: TICAGRELOR 90 MG TABLET PO (10:17)
--- NOTE | 2023-05-19 12:07 | PM.PNCARD ---
Progress Note: A&P Assessment and Plan (1) Non-ST elevation [place] (NSTEMI): Code(s): I21.4 - Non-ST elevation (NSTEMI) myocardial infarction Status: Acute (2) Nonsustained ventricular tachycardia: Code(s): I47.29 - Other ventricular tachycardia Status: Acute (3) Hyperlipidemia: Code(s): E78.5 - Hyperlipidemia, unspecified Status: Acute Plan Underwent LHC yesterday and was found to have significant obstructive 99% mid RCA stenosis. He is now s/p successful IVUS-guided PCI with NOELLE x 1. Continue DAPT with ASA and Brilinta Continue beta sonu. Continue high-intensity statin. LDL is 134. Echocardiogram showed normal LVSF with no valve pathology. OK for discharge today Subjective Date/time seen: 05/19/23 12:07 Interval history: Cardiology follow up for NSTEMI Feeling much better today. Denies any chest pain, shortness of breath, palpitations. Eager to go home. Review of Systems Review of Systems: All systems reviewed & are unremarkable except as noted in HPI and below (HPI) Exam Const: General: comfortable and no acute distress HENMT: Mouth: Yes moist mucous membranes Eyes: General: appearance normal, both eyes and all related structures Sclera: sclerae normal Neck: Neck: supple Resp: Effort & Inspection: normal respiratory effort Auscultation: clear to auscultation bilaterally Cardio: Rate: regular rate Rhythm: regular rhythm Heart sounds: no murmurs Skin: General skin exam: normal color Other: R groin arterial insertion site free from bleeding, hematoma, pain Neuro: Speech: normal speech Extrem: Other: distal pulses intact. No edema Psych: Mental Status: mental status grossly normal Affect: normal affect Objective Data Vital Signs Vital Signs: Vital Signs - 24 hr 05/18/23 12:30 05/18/23 12:45 05/18/23 13:00 Temperature Pulse Rate 56 L 53 L 54 L Respiratory Rate 14 15 15 Blood Pressure 122/96 H 136/93 H 137/93 H Pulse Oximetry 98 97 98 Oxygen Delivery Room Air Room Air Room Air 05/18/23 13:15 05/18/23 13:30 05/18/23 14:00 Temperature 35.7 C L Pulse Rate 55 L 56 L 61 Respiratory Rate 14 15 20 Blood Pressure 139/92 H 135/95 H 139/97 H Pulse Oximetry 98 97 98 Oxygen Delivery Room Air Room Air 05/18/23 14:30 05/18/23 15:00 05/18/23 16:00 Temperature 35.9 C L 36.0 C L 35.9 C L Pulse Rate 59 L 62 64 Respiratory Rate 20 18 20 Blood Pressure 138/95 H 135/89 139/85 Pulse Oximetry 97 99 100 Oxygen Delivery 05/18/23 14:00 05/18/23 16:00 05/18/23 18:00 Temperature Pulse Rate 63 65 65 Respiratory Rate Blood Pressure Pulse Oximetry Oxygen Delivery 05/18/23 20:00 05/18/23 20:00 05/18/23 20:00 Temperature 36.1 C L Pulse Rate 65 70 Respiratory Rate 18 Blood Pressure 150/84 H Pulse Oximetry 98 Oxygen Delivery Room Air 05/18/23 20:53 05/18/23 22:00 05/18/23 23:17 Temperature 36.6 C Pulse Rate 72 72 66 Respiratory Rate 18 Blood Pressure 134/76 Pulse Oximetry 96 Oxygen Delivery 05/19/23 00:00 05/19/23 00:00 05/19/23 02:00 Temperature Pulse Rate 67 64 Respiratory Rate Blood Pressure Pulse Oximetry Oxygen Delivery Room Air 05/19/23 04:00 05/19/23 04:00 05/19/23 04:00 Temperature 36.6 C Pulse Rate 65 74 Respiratory Rate 20 Blood Pressure 111/64 Pulse Oximetry 96 Oxygen Delivery Room Air 05/19/23 06:00 05/19/23 08:00 05/19/23 08:34 Temperature 36.6 C Pulse Rate 65 67 71 Respiratory Rate 12 Blood Pressure 142/99 H Pulse Oximetry 98 95 Oxygen Delivery Room Air 05/19/23 10:17 05/19/23 11:42 Temperature 36.5 C Pulse Rate 71 65 Respiratory Rate 16 Blood Pressure 116/81 Pulse Oximetry 97 Oxygen Delivery Intake/Output Intake/Output: Intake & Output 05/16/23 05/17/23 05/18/23 05/19/23 23:59 23:59 23:59 23:59 Intake Total 640 980 Output Total 1775 Balance -1135 980 Meds/Res
--- NOTE | 2023-05-19 14:40 | PM.DS ---
DS: Admitting Diagnosis Discharge Date 05/19 Admitting Diagnosis (1) Non-ST elevation VT (NSTEMI): ?Code(s): I21.4 - Non-ST elevation (NSTEMI) myocardial infarction ?Status:?Acute (2) Arrhythmia: ?Code(s): I49.9 - Cardiac arrhythmia, unspecified ?Status:?Acute (3) Hyperlipidemia: ?Code(s): E78.5 - Hyperlipidemia, unspecified ?Status:?Acute (4) Nonsustained ventricular tachycardia: ?Code(s): I47.29 - Other ventricular tachycardia ?Status:?Acute DS: Discharge Diagnosis Discharge Diagnosis (1) Non-ST elevation VT (NSTEMI): Code(s): I21.4 - Non-ST elevation (NSTEMI) myocardial infarction Status: Acute (2) Arrhythmia: Code(s): I49.9 - Cardiac arrhythmia, unspecified Status: Acute (3) Hyperlipidemia: Code(s): E78.5 - Hyperlipidemia, unspecified Status: Acute (4) Nonsustained ventricular tachycardia: Code(s): I47.29 - Other ventricular tachycardia Status: Acute DS: Summary Hospital Course Hospital Course: Per H&P, this is a 72 y/o M with a PMH of HTN, prior hx of LE DVT in >20 yrs ago, who has presented with acute worsening of intermittent chest pain throughout the day. This chest pain got worse at 830 pm, and he presented to the nearby Fire department. He took his 's NTG prior to presentation to the Fire station. EKG at the fire station showed STEMI in 2, 3, avF. Unclear if R sided chest leads were obtained. A 2nd EKG from [facility] shows persisting STEMI in 2, 3 and AVF. V4R, V8, V9 appears to be normal. He described his symptoms as dull burning pain that eventually radiated to the L jaw. His also noticed that he started sweating profusely in the evening prior arrival in ED. The pt was transferred here to [facility]. The pt also received 4 aspirin 81's, en route. His symptoms greatly abated, and he has had minimal symptoms since he has been here in the ER, although they are still occasionally occurring. A repeat EKG here was normal, and showed no ST changes in any leads. Dr. Leal, the concrete form setter insurance account manager, was consulted.? At this time, he told the ER physician he did not want to cath the pt. Presuming, inferior VT, he has recommended nitropaste scheduled, metoprolol 25 mg bid, heparin drip, aspirin/statin, ticagrelor 180 mg now (presumably 90 mg bid after that), and trending troponins.A prior EKG has shown PVC's and PAC's. The troponin right now 0.242 (elevated) The following medical issues have been addressed in the hospital NSTEMI troponin elevated to 0.242, no ST elevation on EKG PT was discussed with Dr. Leal. Started heparin drip, aspirin, statin, ticagrelor, scheduled nitropaste, metoprolol 25 mg bid, trend troponin Underwent cardiac test May 18, received a stent in right coronary artery No arrhythmia present on EKG pt has no cp c/w asa 81 mg daily and brillinta 90 mg bid po Nonsustained V-tach Pt had PVC's starting at 12:25. Stat EKG shows 5 beats of vtach with 1 or 2 regular beats. He was symptomatic. He described pounding in his chest. His BP was 134/77 mmHg. He was already on metoprolol. Case was discussed with Dr. Leal. Recommended starting amiodarone Also received 2g MgSulfate and 1g CaGluconate to protect against sustained vtach. No abnormalities noted on electrolyte panel. c/w metoprolol po at ri Chronic pain MSK hold naproxen for CAD r Hospital course is uneventful, patient is afebrile, hemodynamically stable, patient denies chest pain, palpitation, headache, abdomen pain, nausea vomiting diarrhea dysuria. Patient will be discharged home, patient will see primary care doctor and insurance account manager at scheduled appointments Time Spent with Patient Time attestation: Total time spent providing and/or coordinating discharge services: Exam Narrative: GENERAL: Pleasant, in no acute distress. Well-nourished. - EYES: EOMI. Anicteric. - HENT: Moist mucous membranes
== END 2023-05-19 16:18 | disposition home or self-care (01) | DRG 247 ==
LOC: ANHED 22:18 → ANHIMU 23:21
PROVIDERS: Internal Medicine; Admitting Provider Internal Medicine; Emergency Provider Emergency Medicine; PCP Internal Medicine; Visit Provider Hospitalist
PROC: 4A023N7 Measurement of Cardiac Sampling and Pressure, Left Heart, Percutaneous Approach (ICD-10-PCS; CPT 93452; principal; 2023-05-18 10:30)
PROC: 4A023N7 Measurement of Cardiac Sampling and Pressure, Left Heart, Percutaneous Approach (ICD-10-PCS; 2023-05-18 10:30)
PROC: 4A023N7 Measurement of Cardiac Sampling and Pressure, Left Heart, Percutaneous Approach (ICD-10-PCS; 2023-05-18 10:30)
PROC: 4A023N7 Measurement of Cardiac Sampling and Pressure, Left Heart, Percutaneous Approach (ICD-10-PCS; 2023-05-18 10:30)
DX: I21.4 Non-ST elevation (NSTEMI) myocardial infarction (principal); I47.29 Other ventricular tachycardia; E78.5 Hyperlipidemia, unspecified; I25.10 Atherosclerotic heart disease of native coronary artery without angina pectoris; I10 Essential (primary) hypertension; Z86.718 Personal history of other venous thrombosis and embolism; Z87.891 Personal history of nicotine dependence; Z79.82 Long term (current) use of aspirin
CPT/HCPCS: 36415; 71045; 80048; 80053; 80061; 83036; 83690; 84484; 85025; 85610; 85730; 86850; 86900; 86901; 92978; 93005; 93458; 99291; A9270; C1725; C1753; C1760; C1769; C1874; C1887; C1894; C8929; C9600; G0269; J0282; J0612; J1644; J2250; J3010; J3475; J7030; J7040

== ENCOUNTER 2023-10-17 08:30 | Outpatient (RCR) | payer MEDICARE, OTHER, MEDICAID, SELFPAY | END 2023-10-27 13:50 | disposition home or self-care (01) | LOC: ANHCPREHAB 08:30 | PROVIDERS: PCP Internal Medicine; Visit Provider Internal Medicine | DX: Z95.5 Presence of coronary angioplasty implant and graft (principal) | CPT/HCPCS: 93798 ==

== ENCOUNTER 2024-08-31 09:14 | Emergency (ER) | payer MEDICARE, OTHER, MEDICAID, SELFPAY ==
[2024-08-31] VITALS (9 sets, daily range): BP systolic 118–138; BP diastolic 72–93; PULSE 60–83; RESP 12–18; TEMP 36.2; O2SAT 97–100
--- NOTE | ~2024-08-31 | XR_ITS ---
EXAMINATION: XR chest 2V DATE: 08/31/2024 09:38 INDICATION: Chest pain TECHNIQUE: PA and lateral views of the chest were obtained. COMPARISON: Chest radiograph dated 05/17/2023 FINDINGS: Minimal streaky atelectasis/scarring at the anterior lung bases on the lateral projection. No other a irspace opacities, pulmonary edema, pleural effusion or pneumothorax. The cardiomediastinal silhouett e is normal. Mild thoracic spondylosis with chronic mild anterior wedging of a midthoracic vertebral body. IMPRESSION: 1. No acute cardiopulmonary disease. Reviewed, dictated and finalized at location [facility]
--- NOTE | 2024-08-31 09:18 | ECG_ITS ---
Test Date: 2024-08-31 09:22:06 Measurements Intervals [place] Rate: 64 P: 12 MA: 201 QRS: -27 QRSD: 97 T: 8 QT: 390 QTc: 405 Interpretive Statements SINUS RHYTHM INCOMPLETE RIGHT BUNDLE BRANCH BLOCK BASELINE ARTIFACT- I, II, III, AVR, AVL, AVF BORDERLINE ECG No previous ECG available for comparison Electronically Signed On 08-31-2024 09:29:47 [employer]OURED CAR ESC[employer] by Vega Ron D.O.
[2024-08-31 09:31] LABS: Basophils Absolute Auto 0.1 K/mm3 (0.0-0.1); Basophils Percent Auto 1.8 % (0.2-1.2); Eosinophils Absolute Auto 0.3 K/mm3 (0-0.3); Eosinophils Percent Auto 6.2 % (0-4.4); Hematocrit 45.6 % (42.0-52.0); Hemoglobin 15.8 g/dL (14.0-18.0); Immature Granulocyte Absolute 0.01 K/mm3 (0.00-0.031); Immature Granulocyte Percent A 0.2 % (0-0.5); Lymphocytes Absolute Auto 1.33 K/mm3 (0.9-3.2); Lymphocytes Percent Auto 29.2 % (18.3-44.2); Mean Corpuscular HGB Conc 34.6 g/dl (32-36); Mean Corpuscular Hemoglobin 33.3 pg (26-34); Mean Platelet Volume 9.6 fl (7.4-10.4); Monocytes Absolute Auto 0.4 K/mm3 (0.1-0.6); Monocytes Percent Auto 8.4 % (2.6-8.5); Neutrophils Absolute Auto 2.5 K/mm3 (1.3-6.7); Neutrophils Percent Auto 54.2 % (45.5-73.1); Platelet Count Result 152 k/mm3 (150-375); Red Blood Count 4.75 M/mm3 (4.6-6.20); White Blood Count 4.6 K/mm3 (4.5-10.0)
[2024-08-31 09:42] LABS: INR 1.3; Partial Thromboplastin Time 29.2 Seconds (22.3-36.8); Prothrombin Time 16.3 Seconds (11.1-14.7)
[2024-08-31 09:46] LABS: Alanine Aminotransferase 16 U/L (6-50); Albumin Level 4.1 g/dL (3.5-5.1); Alkaline Phosphatase 60 U/L (38-126); Anion Gap 6 mmol/L (4-12); Aspartate Amino Transferase 27 U/L (17-59); Bilirubin,Total 1.1 mg/dL (0.2-1.3); Blood Urea Nitrogen 14 mg/dL (9-20); Calcium 8.8 mg/dL (8.4-10.2); Carbon Dioxide 29 mmol/L (22-30); Chloride 103 mmol/L (98-107); Estimated Glomerular Filt Rate > 60; Glucose 123 mg/dL (65-110); Lipase 38 U/L (23-300); Potassium 4.1 mmol/L (3.4-5.0); Sodium 138 mmol/L (137-145)
[2024-08-31 09:58] LABS: Troponin I < 0.012 ng/mL (0.000-0.034)
--- NOTE | 2024-08-31 10:23 | ED_ITS ---
HPI - Chest Pain General Chief Complaint: Chest Pain Stated Complaint: cp Time Seen by Provider: 08/31/24 09:26 Source: patient Mode of arrival: EMS Limitations: no limitations History of Present Illness HPI narrative: This is a 73-year-old male that presents to the emergency department for an episode of chest pain today. Reports he was seated drinking his coffee. He had a pain in his substernal area, slightly more to the right. It was dull and burning in nature. This lasted for about an hour. He was given a dose of nitro and aspirin EN route via EMS. He has no pain currently. 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 denies shortness of breath or lower extremity edema. Related Data Allergies Allergy/AdvReac Type Severity Reaction Status Date / Time acetaminophen [From Vicodin] Allergy Itching Verified 08/31/24 09:16 codeine Allergy Itching Verified 08/31/24 09:16 hydrocodone [From Vicodin] Allergy Itching Verified 08/31/24 09:16 Review of Systems Review of Systems: CONSTITUTIONAL: Denies fever CARDIOVASCULAR: Reports chest pain. Denies palpitations, or edema. RESPIRATORY: Denies cough or dyspnea. All systems reviewed & are unremarkable except as noted in HPI and below PMFSH Past Medical History Medical History Arrhythmia Hyperlipidemia Social History Social History Smoking packs per day: 0.75 Smoking cigarettes per day: 15.0 Years smoked: 20 Smoking pack-years: 15.00 Smoking status: Former smoker Tobacco type: cigarettes Smoking end date: 07/03/91 Alcohol intake: former Substance use: never Lack of Transportation: No Lack of Food: Never True Current Housing: I Do Not Have Housing Concerned About Future Housing: No Difficulty Paying Gas/Electric Bills: No Difficulty Paying for Meds: No Currently Unemployed: No Education: High School Diploma/GED Difficulty w/ Childcare or Family Care: No Spiritual care concerns: No Exam Narrative: GENERAL: Well-appearing, well-nourished, and in no acute distress. HEAD: Normocephalic, atraumatic. EYES: EOMI. CHEST: Clear to auscultation. No respiratory distress. No wheezes rales or rhonchi HEART: Regular rate and rhythm. No murmur heard. Normal peripheral pulses. EXTREMITIES: Normal range of motion. No edema. SKIN: Warm, dry, no rash. NEURO: No focal deficits. Alert and oriented x3. PSYCH: Normal mood and affect Course Course Emergency Course: Had a in depth discussion with patient and family about his workup and staying for observation. He would like to be discharged and have follow up with his ambulance driver outpatient Vital Signs Vital signs: Vital Signs Temperature 97.1 F L 08/31/24 09:17 Pulse Rate 64 08/31/24 09:17 Respiratory Rate 16 08/31/24 09:17 Blood Pressure 138/93 H 08/31/24 09:17 Pulse Oximetry 100 08/31/24 09:17 Temperature 97.1 F L 08/31/24 09:17 Pulse Rate 60 08/31/24 11:33 Respiratory Rate 15 08/31/24 11:33 Blood Pressure 123/79 08/31/24 11:33 Pulse Oximetry 100 08/31/24 11:33 Oxygen Delivery Room Air 08/31/24 09:27 MDM - Chest Pain MDM Narrative Medical decision making narrative: patient presents to the emergency department for an episode of chest pain today. Reporting pain to be dull/burning in nature while seated drinking coffee. Pain was relieved upon arrival to the ER. His vitals are stable. He had no further episodes of pain while in the ER. CBC and metabolic panel without concerning findings. EKG without acute ST changes and baseline and 3 hour troponin are negative. Chest x-ray without acute cardiopulmonary abnormality. Had a in depth discussion with patient and family about his workup and staying for observation. He would like to be discharged and have follow up with his ambulance driver outpatient. He was instructed to return at any time for any new or worsening symptoms Differential Diagnosis Differential diagnosis: Likely stable angina, unstable angina pectoris, atypical chest pain, costochondritis and other (GERD) Medical Records Data Attestation: I reviewed the patient's medical records. Medical records narrative: 05/2023 LEFT HEART CATHETERIZATION FINDINGS: 1. Left main: Large caliber vessel. The left main coronary artery is widely patent without any significant obstructive disease. 2. Left anterior descending: Large caliber vessel. The LAD has mild diffuse disease without any significant obstructive angiographic disease. The first diagonal branch is a large caliber vessel with luminal irregularities. 3. Left circumflex: Large caliber vessel. The left circumflex artery and the main marginal branches have mild luminal irregularities without any significant obstructive angiographic disease. 4. Right coronary artery: Large caliber vessel. The RCA is the dominant vessel. The mid portion of the RCA has a 99% stenosis. Remainder of the RCA has luminal irregularities. Lab Data Attestation: I reviewed the patient's lab results. 08/31/24 09:24 08/31/24 09:24 Labs: Lab Results 08/31/24 08/31/24 Range/Units 09: 12:12 WBC 4.6 (4.5-10.0) K/mm3 RBC 4.75 (4.6-6.20) M/mm3 Hgb 15.8 (14.0-18.0) g/dL Hct 45.6 (42.0-52.0) % MCV 96.0 (80-100) fl MCH 33.3 (26-34) pg MCHC 34.6 (32-36) g/dl RDW 12.0 (11.5-14.5) % Plt Count 152 (150-375) k/mm3 MPV 9.6 (7.4-10.4) fl Immature Gran % (Auto) 0.2 (0-0.5) % Neut % (Auto) 54.2 (45.5-73.1) % Lymph % (Auto) 29.2 (18.3-44.2) % [place] % (Auto) 8.4 (2.6-8.5) % Eos % (Auto) 6.2 H (0-4.4) % Baso % (Auto) 1.8 H (0.2-1.2) % Lymph # (Auto) 1.33 (0.9-3.2) K/mm3 [place] # (Auto) 0.4 (0.1-0.6) K/mm3 Eos # (Auto) 0.3 (0-0.3) K/mm3 Baso # (Auto) 0.1 (0.0-0.1) K/mm3 Abs Immat Gran (auto) 0.01 (0.00-0.031) K/mm3 Absolute Neuts (auto) 2.5 (1.3-6.7) K/mm3 Absolute Nucleated RBC 0.000 (0.0-0.012) K/mm3 Nucleated RBC % 0.0 (0.0-0.2) % PT 16.3 H (11.1-14.7) Seconds INR 1.3 APTT 29.2 (22.3-36.8) Seconds Sodium 138 (137-145) mmol/L Potassium 4.1 (3.4-5.0) mmol/L Chloride 103 (98-107) mmol/L Carbon Dioxide 29 (22-30) mmol/L Anion Gap 6 (4-12) mmol/L BUN 14 (9-20) mg/dL Creatinine 1.00 (0.7-1.3) mg/dL Estim Creat Clear Calc Not Reportable Estimated GFR > 60 (59 - ) Glucose 123 H (65-110) mg/dL Calcium 8.8 (8.4-10.2) mg/dL Total Bilirubin 1.1 (0.2-1.3) mg/dL AST 27 (17-59) U/L ALT 16 (6-50) U/L Alkaline Phosphatase 60 (38-126) U/L Troponin I < 0.012 < 0.012 (0.000-0.034) ng/mL Total Protein 7.0 (6.3-8.2) g/dL Albumin 4.1 (3.5-5.1) g/dL Lipase 38 (23-300) U/L Imaging Data Radiologist's impression: ITS Impressions Chest X-Ray 08/31/24 09:51 IMPRESSION: 1. No acute cardiopulmonary disease. ECG Data EKG #1: ECG completion date: 08/31/24 EKG Interpretation: normal rate, sinus rhythm, no ST changes, RBBB (incomplete) and normal QT Critical Care Time Critical Care Time Critical Care Time: No Discharge Plan Discharge Clinical Impression: Chest pain Qualifiers: Chest pain type: unspecified Qualified Code(s): R07.9 - Chest pain, unspecified Patient Disposition: Home, Self-Care Condition: Stable Instructions: Chest Pain (ED) Additional Instructions: Return to the emergency department if you experience fever, worsening chest pain, shortness of breath, or any other symptoms that are concerning to you. Your blood work, EKG and imaging today are re-assuring. Continue your home medications as prescribed Follow up with your ambulance driver for further evaluation/management Prescriptions: No Action atorvastatin 40 mg Tablet 80 mg PO HS Qty: 60 1RF aspirin 81 mg Tablet,Delayed Release (Dr/Ec) 81 mg PO QAM Qty: 30 1RF metoprolol tartrate 25 mg Tablet 25 mg PO Q12HR Qty: 60 1RF Brilinta 90 mg Tablet 90 mg PO Q12HR Qty: 60 1RF Follow-up/Referrals: Latia Trujillo MD [Primary Care Provider] - Quality HEART score for chest pain patients History: moderately suspicious ECG: normal Age: > or = to 65 years Risk factors: > or = to 3 risk factors of atherosclerotic disease Troponin: < or = to 1x normal limit Heart score: 5
--- NOTE | 2024-08-31 12:08 | ECG_ITS ---
Test Date: 2024-08-31 12:14:36 Measurements Intervals [place] Rate: 59 P: 18 ND: 194 QRS: -23 QRSD: 105 T: 5 QT: 401 QTc: 399 Interpretive Statements SINUS BRADYCARDIA INCOMPLETE RIGHT BUNDLE BRANCH BLOCK BASELINE ARTIFACT- I, II, III, AVR, AVL, AVF BORDERLINE ECG Compared to ECG 08/31/2024 09:22:06 NO SIGNIFICANT CHANGE Electronically Signed On 08-31-2024 12:18:06 ELECTROENCEPHALOGRAPH TECHNICIAN by Vega Ron D.O.
[2024-08-31 12:44] LABS: Troponin I < 0.012 ng/mL (0.000-0.034)
== END 2024-08-31 13:52 | disposition home or self-care (01) ==
PROVIDERS: Emergency Medicine; Emergency Provider Physician Assistant; PCP Internal Medicine
DX: R07.9 Chest pain, unspecified (principal); E78.5 Hyperlipidemia, unspecified; Z87.891 Personal history of nicotine dependence
CPT/HCPCS: 36415; 71046; 80053; 83690; 84484; 85025; 85610; 85730; 93005; 99284